=== PATIENT | female | born 1955 | race Caucasian/White ===

== ENCOUNTER 2018-11-19 20:37 | Emergency (ER) | payer BC ==
[2018-11-19] MEDS ORDERED: Sodium Chloride 0.9% 2.5 ML Syringe FLUSH PRN (20:46)
[2018-11-19] MEDS ORDERED: Ketorolac 30 MG/ML SDV IVPUSH ONE (20:46)
[2018-11-19] MEDS ORDERED: Ondansetron 4 MG/2 ML SDV IVPUSH ONE (20:46)
[2018-11-19] MEDS ORDERED: Sodium Chloride 0.9% 1,000 ML IV ONE (20:46)
[2018-11-19] MEDS ORDERED: Sodium Chloride 0.9% 10 ML Syringe FLUSH PRN (20:46)
--- NOTE | 2018-11-19 20:52 | EDM.PDOC ---
ED HPI GENERAL MEDICAL PROBLEM - General Chief Complaint: Lower Extremity Injury/Pain Stated Complaint: AMB Time Seen by Provider: 11/19/18 20:40 - History of Present Illness INITIAL COMMENTS - FREE TEXT/NARRATIVE: HISTORY AND PHYSICAL: History of present illness: The patient is a 63-year-old female with a history of hypercholesterolemia and psychosocial issues for which she takes medications and presents with complaints of right ankle pain that started while she was playing with her grandchildren prior to arrival. She says she was on a small push scooter and is not sure which she did with her ankle but she twisted it and went to the ground. She says she did not hit her head pass out or black out and has no head neck or midline back pain and only has pain to the right ankle. She denies pain to the right knee or hip. Prior to these events she was in her usual state of good health and had no systemic issues such as fever chills chest pain shortness of breath abdominal pain nausea or vomiting and she ate dinner about 1 hour ago. She admits that she had 6 beers this evening which she states are the "low alcohol" type. She came via EMS he did not receive any pain meds in route and it is in a cardboard splint. She says her toes feel tingly but she is able to move them and she can feel me touching her. She denies any prior injuries. Review of systems: As per history of present illness and below otherwise all systems reviewed and negative. Past medical history: As per history of present illness and as reviewed below otherwise noncontributory. Surgical history: As per history of present illness and as reviewed below otherwise noncontributory. Social history: No reported history of drug or alcohol abuse. Family history: As per history of present illness and as reviewed below otherwise noncontributory. Physical exam: General: Well-developed well-nourished female who is nontoxic and speaking clearly in the ED. Vital signs are noted by me HEENT: Atraumatic, normocephalic, pupils reactive, negative for conjunctival pallor or scleral icterus, mucous membranes moist, throat clear, neck supple, nontender, trachea midline. there is no scalp tenderness defects or deformities and no midline step-offs in his defects of the cervical spine Lungs: Clear to auscultation, breath sounds equal bilaterally, chest nontender. Heart: S1S2, regular ate and rhythm no overt murmurs Abdomen: Soft, nondistended, nontender. Negative for masses or hepatosplenomegaly. Negative for costovertebral tenderness. Pelvis: Stable nontender. no lateral hip tenderness Genitourinary: Deferred. Rectal: Deferred. Extremities: Atraumatic and full range of motion of all extremity is with the exception of the right ankle where there is an obvious deformity with lateral angulation of the foot with respect to the distal tib-fib and there is tenting of the skin in this region. There are no skin breaks seen. There is tenderness of the ankle diffusely but the patient has neurosensory intact in her toes and feet and can wiggle them and pulses are strong. The proximal tib-fib is nontender and there is no defects or deformities nor is there any proximal knee femur or hip tenderness defects or deformities on the right. All other extremities are without tenderness defects or deformities, legs are negative for cords or calf pain. Neurovascular unremarkable. Neuro: Awake, alert, oriented. Cranial nerves II through XII unremarkable. Cerebellum unremarkable. Motor and sensory unremarkable throughout. Exam nonfocal. back: There are no midline step-offs in his defects of the thoracic or lumbar spine no posterior rib or posterior pelvis tenderness and no soft tissue injuries are appreciated Diagnostics: X-ray of right ankle and tib-fib, CBC CMP INR alcohol level , post reduction x- ray Therapeutics: IV placement for EMS, IV fluids Zofran Toradol post short leg mold along with sugar tong splint I explained to the patient and family at bedside the need to reduce the fracture dislocation and that this will need operative intervention. She is upset because she does not live here locally and she is upset that she will need to be transferred and that we cannot do anything here other than the ER care. I've explained that the anesthesia BIOCHEMISTRY TECHNICIAN will come here and discuss constipation and we will reduce the ankle dislocation place the splints on and I will call [facility] for transfer. She is upset but understands. Procedure note: After the procedure was explained to the patient the BIOCHEMISTRY TECHNICIAN administered IV conscious sedation and using gentle traction the fracture dislocation was reduced without complication. Good cap refill was noted as well as intact pulses. A short-leg post mold and sugar tong splint were placed by nursing and by me. The patient tolerated the procedure well and will be recovered here in the ED. Post reduction x-ray will be performed. Please see BIOCHEMISTRY TECHNICIAN note for conscious sedation procedure information. 2208: Case was discussed with Dr. Ariza at [facility] in [place] who accepts the patient for transfer. He is aware that we do not have orthopedics here. Patient is also aware of the need for transfer and I am following up the postreduction x-ray and will manage her pain appropriately. We will also hang maintenance IV fluids. We are arranging ambulance transfer Impression: Trimalleolar fracture dislocation of right ankle Definitive disposition and diagnosis as appropriate pending reevaluation and review of above. 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 ED EXAM, GENERAL - Physical Exam Exam: See Below (See dictation) Course - Vital Signs Last Recorded V/S: Last Vital Signs Temp 36.1 C 11/19/18 20:40 Pulse 95 11/19/18 22:00 Resp 16 11/19/18 22:00 BP 148/86 H 11/19/18 22:00 Pulse Ox 100 11/19/18 22:00 - Orders/Labs/Meds Orders: Active Orders 24 hr Category Date Time Status Ankle 2V Rt [CR] Stat Exams 11/19/18 21:54 Ordered Sodium Chloride 0.9% [Saline Flush] Med 11/19/18 20:46 Active 10 ml FLUSH ASDIRECTED PRN Sodium Chloride 0.9% [Saline Flush] Med 11/19/18 20:46 Active 2.5 ml FLUSH ASDIRECTED PRN Saline Lock Insert [OM.PC] Stat Oth 11/19/18 20:46 Ordered Medication Orders Sodium Chloride (Saline Flush) 10 ml FLUSH ASDIRECTED PRN PRN Reason: Keep Vein Open Last Admin: 11/19/18 21:00 Dose: 10 ml Sodium Chloride (Saline Flush) 2.5 ml FLUSH ASDIRECTED PRN PRN Reason: Keep Vein Open Last Admin: 11/19/18 21:00 Dose: 2.5 ml Labs: Laboratory Tests 11/19/18 11/19/18 11/19/18 Range/Units 20:50 20:50 20:50 WBC 7.80 (4.0-11.0) K/uL RBC 3.76 L (4.30-5.90) M/uL Hgb 11.8 L (12.0-16.0) g/dL Hct 34.6 L (36.0-46.0) % MCV 92.0 (80.0-98.0) fL MCH 31.4 (27.0-32.0) pg MCHC 34.1 (31.0-37.0) g/dL RDW Std Deviation 41.5 (28.0-62.0) fl RDW Coeff of Migel 13 (11.0-15.0) % Plt Count 336 (150-400) K/uL MPV 9.00 (7.40-12.00) fL Neut % (Auto) 49.6 (48.0-80.0) % Lymph % (Auto) 39.6 (16.0-40.0) % Person % (Auto) 7.4 (0.0-15.0) % Eos % (Auto) 2.8 (0.0-7.0) % Baso % (Auto) 0.6 (0.0-1.5) % Neut # (Auto) 3.9 (1.4-5.7) K/uL Lymph # (Auto) 3.1 H (0.6-2.4) K/uL Person # (Auto) 0.6 (0.0-0.8) K/uL Eos # (Auto) 0.2 (0.0-0.7) K/uL Baso # (Auto) 0.1 (0.0-0.1) K/uL INR 1.01 Sodium 134 L (136-145) mmol/L Potassium 3.9 (3.5-5.1) mmol/L Chloride 100 (98-107) mmol/L Carbon Dioxide 25.5 (21.0-32.0) mmol/L BUN 16 (7.0-18.0) mg/dL Creatinine 1.4 H (0.6-1.0) mg/dL Est Cr Clr Drug Dosing TNP Estimated GFR (MDRD) 37.9 ml/min Glucose 113 H (74-106) mg/dL Calcium 9.5 (8.5-10.1) mg/dL Total Bilirubin 0.2 (0.2-1.0) mg/dL AST 22 (15-37) IU/L ALT 35 (14-63) IU/L Alkaline Phosphatase 72 (46-116) U/L Total Protein 6.9 (6.4-8.2) g/dL Albumin 3.8 (3.4-5.0) g/dL Globulin 3.1 (2.6-4.0) g/dL Albumin/Globulin Ratio 1.2 (0.9-1.6) Ethyl Alcohol 132 mg/dL Meds: Medications Generic Name Dose Route Start Last Admin Trade Name Freq PRN Reason Stop Dose Admin Sodium Chloride 10 ml 11/19/18 20:46 11/19/18 21:00 Saline Flush FLUSH 10 ml ASDIRECTED PRN Administration Keep Vein Open Sodium Chloride 2.5 ml 11/19/18 20:46 11/19/18 21:00 Saline Flush FLUSH 2.5 ml ASDIRECTED PRN Administration Keep Vein Open Discontinued Medications Generic Name Dose Route Start Last Admin Trade Name Freq PRN Reason Stop Dose Admin Sodium Chloride 1,000 mls @ 999 mls/hr 11/19/18 20:46 11/19/18 20:51 Normal Saline IV 11/19/18 21:46 999 mls/hr STAT ONE Administration Ketamine HCl Confirm 11/19/18 21:41 Ketalar Administered 11/19/18 21:42 Dose 500 mg .ROUTE .STK-MED ONE Ketorolac Tromethamine 30 mg 11/19/18 20:46 11/19/18 20:56 Toradol IVPUSH 11/19/18 20:47 30 mg ONETIME ONE Administration Midazolam HCl Confirm 11/19/18 21:41 Versed 1 Mg/Ml Administered 11/19/18 21:42 Dose 2 mg .ROUTE .STK-MED ONE Ondansetron HCl 4 mg 11/19/18 20:46 11/19/18 20:55 Zofran IVPUSH 11/19/18 20:47 4 mg ONETIME ONE Administration Propofol Confirm 11/19/18 21:41 Diprivan 20 Ml Administered 11/19/18 21:42 Dose 200 mg .ROUTE .STK-MED ONE Departure - Departure Time of Disposition: 22:29 Disposition: DC/Tfer to Acute Hospital 02 Condition: Good Clinical Impression: Fracture dislocation of right ankle Qualifiers: Encounter type: initial encounter Fracture type: closed Qualified Code(s): S82.891A - Other fracture of right lower leg, initial encounter for closed fracture - Discharge Information Referrals: PCP,None [Primary Care Provider] - Forms: ED Department Discharge - My Orders Last 24 Hours: My Active Orders 11/19/18 20:46 Sodium Chloride 0.9% [Saline Flush] 10 ml FLUSH ASDIRECTED PRN Sodium Chloride 0.9% [Saline Flush] 2.5 ml FLUSH ASDIRECTED PRN Saline Lock Insert [OM.PC] Stat 11/19/18 21:54 Ankle 2V Rt [CR] Stat - Assessment/Plan Last 24 Hours: My Active Orders 11/19/18 20:46 Sodium Chloride 0.9% [Saline Flush] 10 ml FLUSH ASDIRECTED PRN Sodium Chloride 0.9% [Saline Flush] 2.5 ml FLUSH ASDIRECTED PRN Saline Lock Insert [OM.PC] Stat 11/19/18 21:54 Ankle 2V Rt [CR] Stat
[2018-11-19 21:19] LABS: CHLORIDE,CL 100 mmol/L (98-107); SODIUM,NA 134 mmol/L (136-145)
[2018-11-19] MEDS ORDERED: Ketamine 500 mg/10 ML MDV ONE (21:41)
[2018-11-19] MEDS ORDERED: Midazolam 1 MG/ML 2 ML SDV ONE (21:41)
[2018-11-19] MEDS ORDERED: Propofol 200 MG/20 ML SDV ONE (21:41)
--- NOTE | 2018-11-19 22:03 | PCM.SN ---
- Free Text/Narrative Note: Called to ER for sedation for ankle relocation. History reviewed and patient consented with family/daughter at bedside. O2 applied and versed 2mg, Ketamine 50mg and Propoifol 50 mg IV, patient tolerated procedure well. Report to staff and care per ER MD.
--- NOTE | 2018-11-19 22:04 | CR ---
INDICATION: Trauma TECHNIQUE: Two views right tibia and fibula COMPARISON: None FINDINGS: Bones: Displaced fractures involving the medial lateral and posterior malleoli. Joint spaces: Disruption of the ankle and distal tibiofibular joints. Soft tissues: Unremarkable. IMPRESSION: Displaced trimalleolar fractures with disruption of the ankle and distal tibiofibular joints. Post reduction views recommended. Dictated by Abraham Francis MD @ 11/19/2018 10:03:08 PM Dictated by: Abraham Francis MD @ 11/19/2018 22:03:15 (Electronically Signed)
--- NOTE | 2018-11-19 22:06 | CR ---
INDICATION: Trauma TECHNIQUE: Three views right ankle COMPARISON: None FINDINGS: Bones: Displaced trimalleolar fractures. Joint spaces: Disruption of the ankle and distal tibiofibular joints. Soft tissues: Diffuse soft tissue edema. IMPRESSION: Displaced trimalleolar fractures with disruption of the ankle and distal tibiofibular joints. Postreduction views recommended. Dictated by Abraham Francis MD @ 11/19/2018 10:04:37 PM Dictated by: Abraham Francis MD @ 11/19/2018 22:04:46 (Electronically Signed)
[2018-11-19] MEDS ORDERED: Sodium Chloride 0.9% 1,000 ML IV SCH (22:30)
--- NOTE | 2018-11-19 22:59 | CR ---
INDICATION: Ankle fracture dislocation status post reduction TECHNIQUE: Ankle radiograph 2 views right COMPARISON: 11/19/2018 FINDINGS: Bone: The oblique lateral malleolar fracture has been reduced with mild 6 mm distraction of the fracture fragments. The medial malleolar and posterior tibial fracture fragments have been reduced to anatomic alignment. Joint: The tibiotalar joint has been reduced to anatomic alignment. No significant ankle effusion is seen. Soft tissue: An overlying posterior splint is noted which limits evaluation of the underlying osseous structures and soft tissues. No radiopaque foreign bodies are seen. IMPRESSIONS: 1. The oblique lateral malleolar fracture has been reduced with mild 6 mm distraction of the fracture fragments. 2. The medial malleolar and posterior tibial fracture fragments have been reduced to anatomic alignment. 3. The tibiotalar joint has been reduced to anatomic alignment. Dictated by Qamar Dunbar MD @ 11/19/2018 10:58:20 PM Dictated by: Qamar Dunbar MD @ 11/19/2018 22:58:48 (Electronically Signed)
[2018-11-19] MEDS ORDERED: HYDROmorphone 1 MG/ML Syringe IVPUSH ONE (23:45)
== END 2018-11-20 02:58 ==
LOC: MW.ED 20:37
DX: S82.851A Displaced trimalleolar fracture of right lower leg, initial encounter for closed fracture (principal); X50.1XXA Overexertion from prolonged static or awkward postures, initial encounter
CPT/HCPCS: 36415; 73590-26-RT; 73590-RT; 73600-26-RT; 73600-RT; 73610-26-RT; 73610-RT; 80053; 82962; 85025; 85610; 96361; 96374; 96375; 99284-25; G0480; J1170; J1885; J2405; J7040